=== PATIENT | male | born 1990 | race Caucasian/White ===

== ENCOUNTER 2018-04-03 13:30 | Emergency (ER) | payer OTHER ==
[~2018-04-03] VITALS: Ht 180.3 cm; Wt 72.6 kg
--- NOTE | ~2018-04-03 | EKG ---
[address] [address] [place] [address] ELECTROCARDIOGRAM REPORT Name: BEENA LEE [facility] M#: [id number] Admission: 04/03/18 Attend Phys: Discharge: 04/03/18 Date of : 88 Report #: [id number] THIS REPORT FOR: //name// [facility] ED Test Date: 2018-04-03 Test Time: 13:45:47 Pat Name: BEENA LEE Department: Room: Gender: Personal Support Worker: JOSIAHVenus : 1990 Requested By: Brent Bingham Order Number: [id number] MD: Hema Jackson Measurements Intervals [place] Rate: 84 P: 70 [place]: 129 QRS: 74 QRSD: 91 T: 51 QT: 378 QTc: 447 Interpretive Statements Sinus rhythm RSR' in V1 or V2, probably normal variant No previous ECG available for comparison Electronically Signed On 04-04-2018 8:24:10 CDT by Hema Jackson [email or web address] <ELECTRONICALLY SIGNED> By: Hema Jackson MD, [facility] 04/04/18 0824 [id number] Hema Jackson MD, FACC /EPI
[~2018-04-03 13:30] MED LIST: HYDROCHLOROTH12.5 M1 PO; KEFLEX500 M1 PO
[2018-04-03] MEDS ORDERED: ALEVE220 MG PO (14:41)
[2018-04-03 14:48] LABS: HEMATOCRIT 41.8 % (42.0-52.0); HEMOGLOBIN 14.5 gm/dL (14.0-18.0); MCH 30.7 pg (26.0-34.0); MCHC 34.6 g/dL (28.0-37.0); MCV 88.6 fL (80.0-100.0); RBC 4.72 mil/uL (4.50-6.00); RDW 12.7 % (10.5-14.5); WBC 6.7 thou/uL (4.0-11.0)
[2018-04-03 15:09] LABS: ANION GAP 7 mmol/L (7-16); BUN 12 mg/dL (7-18); CALCIUM 9.3 mg/dL (8.5-10.1); CHLORIDE 105 mmol/L (98-107); CO2 29 mmol/L (21-32); GLUCOSE 102 mg/dL (74-106); SODIUM 141 mmol/L (136-145)
[2018-04-03 15:18] LABS: TROPONIN-I <0.06 ng/mL (<0.06)
[2018-04-03] MEDS ORDERED: MOBIC7.5 MG PO (15:22)
[2018-04-03 16:18] VITALS: BP 126/70
== END 2018-04-03 16:24 | disposition home or self-care (01) ==
LOC: ER 13:30
PROVIDERS: Physician Assistant
DX: R07.89 Other chest pain (principal)